=== PATIENT | male | born 1965 | race Caucasian/White ===

== ENCOUNTER 2020-03-21 11:16 | Outpatient (CLI) | payer OTHER | END 2020-03-21 11:59 | disposition home or self-care (01) | LOC: LAB 11:16 | DX: R05 Cough (principal); R50.9 Fever, unspecified; Z20.828 Contact with and (suspected) exposure to other viral communicable diseases; R06.02 Shortness of breath; Z03.818 Encounter for observation for suspected exposure to other biological agents ruled out ==

== ENCOUNTER 2021-12-29 10:39 | Emergency (ER) | payer OTHER | END 2021-12-29 11:09 | disposition left against medical advice (07) | LOC: ER 10:39 | DX: Z53.21 Procedure and treatment not carried out due to patient leaving prior to being seen by health care provider (principal) ==

== ENCOUNTER 2022-01-04 12:04 | Emergency (ER) | payer OTHER ==
[~2022-01-04] VITALS: Ht 188 cm; Wt 93.9 kg
== END 2022-01-04 15:58 | disposition home or self-care (01) ==
LOC: ER 12:04
DX: S50.312A Abrasion of left elbow, initial encounter (principal); X58.XXXA Exposure to other specified factors, initial encounter; Y93.9 Activity, unspecified; Y92.9 Unspecified place or not applicable; Y99.9 Unspecified external cause status; L03.114 Cellulitis of left upper limb